=== PATIENT | male | born 1990 | race Caucasian/White ===

== ENCOUNTER 2024-05-08 08:42 | Day surgery (SDC) | payer OTHER ==
[2024-05-06 15:32] VITALS: BMI 23.0
[2024-05-08] MEDS ORDERED: CEFAZOLIN 2 GM VIAL ONE (11:06)
[2024-05-08] MEDS ORDERED: Bupivacaine PF 0.5% 30 ML VIAL ONE (11:06)
[2024-05-08] MEDS ORDERED: Scopolamine 1 mg/72 hour Patch ONE (11:49)
[2024-05-08] MEDS ORDERED: fentaNYL 50 mcg/mL 1 mL Vial ONE (11:57)
[2024-05-08] MEDS ORDERED: PROPOFOL 20 ML ONE (11:58)
[2024-05-08] MEDS ORDERED: ePHEDrine Sulfate 50 MG/10 ML VIAL ONE (12:41)
[2024-05-08] MEDS ORDERED: Ketorolac Tromethamine 30 MG (1 mL) VIAL ONE (13:15)
== END 2024-05-08 14:50 | disposition home or self-care (01) ==
LOC: CSHSDC 08:42
PROVIDERS: ATTEND Podiatrist Foot & Ankle Surgery
PROC: 0YPB0YZ Removal of Other Device from Left Lower Extremity, Open Approach (ICD-10-PCS; principal; 2024-05-08)
PROC: 0QTP0ZZ Resection of Left Metatarsal, Open Approach (ICD-10-PCS; principal; 2024-05-08)
PROC: 0LNW0ZZ Release Left Foot Tendon, Open Approach (ICD-10-PCS; principal; 2024-05-08)
DX: T84.117A Breakdown (mechanical) of internal fixation device of bone of left lower leg, initial encounter (principal); T84.84XA Pain due to internal orthopedic prosthetic devices, implants and grafts, initial encounter; G57.82 Other specified mononeuropathies of left lower limb; M20.42 Other hammer toe(s) (acquired), left foot; F17.200 Nicotine dependence, unspecified, uncomplicated; Y79.2 Prosthetic and other implants, materials and accessory orthopedic devices associated with adverse incidents
CPT/HCPCS: J0665; J1885; J2704; J3010